=== PATIENT | female | born 1955 | race African-American/Black ===

== ENCOUNTER 2021-11-14 17:15 | Emergency (ER) | payer SELFPAY ==
[~2021-11-14] VITALS: Ht 172.7 cm; Wt 91.0 kg
[2021-11-14 18:58] LABS: CHLORIDE 103 mEq/L (98-107)
[2021-11-14 21:18] LABS: BASOPHILS % 0.1 % (0.0-2.0); EOSINOPHILS % 0.8 % (0.0-5.0); HEMATOCRIT. 38.5 % (36.0-48.0); HEMOGLOBIN. 12.8 g/dL (12.0-16.0); MEAN CORPUSCULAR HEMOGLOBIN 30.7 pg (28.0-32.0); MEAN CORPUSCULAR VOLUME 92.7 fL (81.0-99.0); MEAN PLATELET VOLUME 9.4 fl (7.4-10.4); MONOCYTES % 12.1 % (2.0-8.0); PLATELET 202 x1000/uL (130-400); RED BLOOD CELL COUNT 4.16 mill/uL (4.2-5.4); RED CELL DISTRIBUTION WIDTH 13.3 % (11.6-14.6)
[2021-11-14 23:16] LABS: CLARITY URINE CLEAR (CLEAR); COLOR URINE YELLOW (YELLOW); KETONES URINE NEGATIVE (NEGATIVE); LEUKOCYTE ESTERASE URINE 2+ (NEGATIVE); NITRITE URINE NEGATIVE (NEGATIVE); OCCULT BLOOD URINE TRACE (NEGATIVE); PH URINE 6.5 (4.5-8.0); PROTEIN URINE NEGATIVE (NEGATIVE); SPECIFIC GRAVITY URINE 1.012 (1.005-1.030); UROBILINOGEN URINE 0.2 E.U./dL (0.2-1.0)
[2021-11-14 23:38] VITALS: BP 180/94
[2021-11-14] MEDS ORDERED: KETOROLAC 30MG/ML VIAL IV STA (23:38)
[2021-11-14] MEDS ORDERED: SODIUM CHLORIDE 0.9% 1,000 ML IV ONE (23:45)
[2021-11-14] MEDS ORDERED: CEFTRIAXONE 1 G PREMIX 50 ML IV ONE (23:45)
[2021-11-15] MEDS ORDERED: TAMSULOSIN HCL 0.4MG SR CAPSULE PO ONE
[2021-11-15] MEDS ORDERED: ONDA4TAB11 PO (01:15)
[2021-11-15] MEDS ORDERED: POLY119P2 MT (01:15)
[2021-11-15] MEDS ORDERED: TRAM50TA3 MT (01:15)
[2021-11-15] MEDS ORDERED: CEPH500C2 MT (01:15)
[2021-11-15] MEDS ORDERED: TAMS-11 MT (01:15)
== END 2021-11-15 02:14 | disposition home or self-care (01) ==
LOC: ER 17:15
DX: N20.0 Calculus of kidney (principal); N39.0 Urinary tract infection, site not specified; R10.9 Unspecified abdominal pain; I10 Essential (primary) hypertension; Z88.2 Allergy status to sulfonamides
CPT/HCPCS: 36415; 71101; 74176; 80053; 81003; 83690; 83880; 84484; 85025; 96365; 96375; 99285; J0696; J1885; J7030

== ENCOUNTER 2022-02-23 09:32 | Inpatient (IN) | payer OTHER ==
[~2022-02-23] VITALS: Ht 157.5 cm; Wt 117.9 kg
[~2022-02-23 09:32] MED LIST: CEPH500C2 MT; ONDA4TAB11 PO; POLY119P2 MT; TAMS-11 MT; TRAM50TA3 MT
[2022-02-23 12:54] LABS: BASOPHILS % 0.3 % (0.0-2.0); EOSINOPHILS % 2.6 % (0.0-5.0); HEMATOCRIT. 40.3 % (36.0-48.0); HEMOGLOBIN. 13.7 g/dL (12.0-16.0); LYMPHOCYTES % 35.8 % (20.0-50.0); MEAN CORPUSCULAR HEMOGLOBIN 31.6 pg (28.0-32.0); MEAN CORPUSCULAR VOLUME 92.8 fL (81.0-99.0); MEAN PLATELET VOLUME 8.4 fl (7.4-10.4); MONOCYTES % 9.5 % (2.0-8.0); NEUTROPHILS % 51.8 % (40.0-76.0); PLATELET 147 x1000/uL (130-400); RED BLOOD CELL COUNT 4.34 mill/uL (4.2-5.4); RED CELL DISTRIBUTION WIDTH 13.3 % (11.6-14.6)
[2022-02-23 12:59] LABS: CHLORIDE 106 mEq/L (98-107)
[2022-02-23 13:20] LABS: CLARITY URINE CLEAR (CLEAR); COLOR URINE YELLOW (YELLOW); KETONES URINE NEGATIVE (NEGATIVE); LEUKOCYTE ESTERASE URINE 2+ (NEGATIVE); NITRITE URINE POSITIVE (NEGATIVE); OCCULT BLOOD URINE 1+ (NEGATIVE); PH URINE 5.5 (4.5-8.0); PROTEIN URINE NEGATIVE (NEGATIVE); SPECIFIC GRAVITY URINE 1.021 (1.005-1.030); UROBILINOGEN URINE 0.2 E.U./dL (0.2-1.0)
[2022-02-23 14:31] LABS: PROTHROMBIN TIME 10.8 sec (9.6-11.0)
[2022-02-23] MEDS ORDERED: MORPHINE SULFATE 4 MG/ML CPJ (NOT FOR IM USE) IV ONE (16:30)
[2022-02-23] MEDS ORDERED: ONDANSETRON HCL 4MG/2ML INJ IV ONE (16:30)
[2022-02-23] MEDS ORDERED: PANTOPRAZOLE SODIUM 40 MG/VIAL IV ONE (16:30)
[2022-02-23] MEDS ORDERED: DIPHENHYDRAMINE 50MG/ML VIAL IV PRN (16:45)
[2022-02-23] MEDS ORDERED: ONDANSETRON HCL 4MG/2ML INJ IV PRN (16:45)
[2022-02-23] MEDS ORDERED: IPRATROPIUM/ALBUTEROL 0.5-3(2.5)MG/3ML NEB HHN PRN (16:45)
[2022-02-23] MEDS ORDERED: CEFTRIAXONE 1 G PREMIX 50 ML IV SCH (16:45)
[2022-02-23] MEDS ORDERED: CLONIDINE 0.1MG TABLET PO PRN (16:45)
[2022-02-23] MEDS: CEFTRIAXONE 1,000 MG in DEXTROSE 5% WATER 50 ML IV SCH (18:50)
[2022-02-23 23:00] VITALS: BP 126/69
[2022-02-24] VITALS: BP 126/70
[2022-02-24] MEDS: ACETAMINOPHEN 325MG TABLET PO PRN (01:57)
[2022-02-24 04:00] VITALS: BP 115/61
[2022-02-24 06:40] LABS: CHLORIDE 105 mEq/L (98-107)
[2022-02-24 06:43] LABS: BASOPHILS % 0.1 % (0.0-2.0); EOSINOPHILS % 2.3 % (0.0-5.0); HEMATOCRIT. 35.7 % (36.0-48.0); HEMOGLOBIN. 12.3 g/dL (12.0-16.0); MEAN CORPUSCULAR HEMOGLOBIN 31.4 pg (28.0-32.0); MEAN PLATELET VOLUME 8.8 fl (7.4-10.4); MONOCYTES % 13.1 % (2.0-8.0); NEUTROPHILS % 51.5 % (40.0-76.0); PLATELET 132 x1000/uL (130-400); RED BLOOD CELL COUNT 3.92 mill/uL (4.2-5.4)
[2022-02-24 07:52] VITALS: BP 129/69
[2022-02-24 11:10] VITALS: BP_SYST 125; BP_SYST 145; BP_DIAS 60; BP_DIAS 80
[2022-02-24] MEDS ORDERED: IOHEXOL-350 100 ML BOTTLE ONE (14:35)
[2022-02-24 15:08] VITALS: BP 150/80
[2022-02-24] MEDS: CEFTRIAXONE 1,000 MG in DEXTROSE 5% WATER 50 ML IV SCH ×2 (17:10→17:11)
[2022-02-24 20:00] VITALS: BP 136/61
[2022-02-24] MEDS: HYDROCORTISONE ACETATE 25MG SUPP PR SCH (21:05)
[2022-02-25] VITALS: BP 128/82
[2022-02-25 04:00] VITALS: BP 130/80
[2022-02-25] MEDS: ACETAMINOPHEN 325MG TABLET PO PRN (06:26)
[2022-02-25 06:35] LABS: BASOPHILS % 0.3 % (0.0-2.0); EOSINOPHILS % 2.4 % (0.0-5.0); HEMOGLOBIN. 13.3 g/dL (12.0-16.0); LYMPHOCYTES % 32.5 % (20.0-50.0); MEAN CORPUSCULAR HEMOGLOBIN 30.5 pg (28.0-32.0); MEAN CORPUSCULAR VOLUME 91.8 fL (81.0-99.0); MEAN PLATELET VOLUME 9.2 fl (7.4-10.4); MONOCYTES % 12.3 % (2.0-8.0); NEUTROPHILS % 52.5 % (40.0-76.0); PLATELET 144 x1000/uL (130-400); RED BLOOD CELL COUNT 4.36 mill/uL (4.2-5.4); RED CELL DISTRIBUTION WIDTH 13.4 % (11.6-14.6)
[2022-02-25 06:55] LABS: CHLORIDE 103 mEq/L (98-107)
[2022-02-25 07:36] VITALS: BP 156/78
[2022-02-25] MEDS: HYDROCORTISONE ACETATE 25MG SUPP PR SCH ×2 (08:05→21:48)
[2022-02-25] MEDS: PANTOPRAZOLE SODIUM 40 MG/VIAL IV SCH (08:05)
[2022-02-25] MEDS ORDERED: CLOTRIMAZOLE 1% SOLUTION 10ML TOP SCH (11:00)
[2022-02-25 11:37] VITALS: BP 157/74
[2022-02-25] MEDS: CLOTRIMAZOLE 1% CREAM 15GM TOP SCH ×2 (11:54→20:30)
[2022-02-25] MEDS ORDERED: ENOXAPARIN 120MG/0.8ML SYR SUBCUT SCH (12:30)
[2022-02-25 15:06] VITALS: BP 152/74
[2022-02-25 20:00] VITALS: BP 155/85
[2022-02-26] VITALS (13 sets, daily range): BP systolic 120–173; BP diastolic 56–90
[2022-02-26 05:32] LABS: BASOPHILS % 0.1 % (0.0-2.0); EOSINOPHILS % 2.7 % (0.0-5.0); HEMATOCRIT. 39.2 % (36.0-48.0); HEMOGLOBIN. 13.2 g/dL (12.0-16.0); LYMPHOCYTES % 28.1 % (20.0-50.0); MEAN CORPUSCULAR HEMOGLOBIN 30.8 pg (28.0-32.0); MEAN CORPUSCULAR VOLUME 91.5 fL (81.0-99.0); MEAN PLATELET VOLUME 8.6 fl (7.4-10.4); MONOCYTES % 11.5 % (2.0-8.0); NEUTROPHILS % 57.6 % (40.0-76.0); PLATELET 165 x1000/uL (130-400); RED BLOOD CELL COUNT 4.29 mill/uL (4.2-5.4)
[2022-02-26 05:59] LABS: CHLORIDE 104 mEq/L (98-107)
[2022-02-26] MEDS ORDERED: LIDOCAINE HCL 1% 50ML VIAL (10MG/ML) ONE (07:20)
[2022-02-26] MEDS ORDERED: IOHEXOL-300 100 ML BOTTLE ONE (07:20)
[2022-02-26] MEDS ORDERED: IOHEXOL-300 50 ML BOTTLE IV ONE (07:20)
[2022-02-26] MEDS: PANTOPRAZOLE SODIUM 40 MG/VIAL IV SCH (09:19)
[2022-02-26] MEDS: ACETAMINOPHEN 325MG TABLET PO PRN (09:20)
[2022-02-26] MEDS: HYDROCORTISONE ACETATE 25MG SUPP PR SCH (09:20)
[2022-02-26] MEDS: CLOTRIMAZOLE 1% CREAM 15GM TOP SCH (09:21)
[2022-02-26] MEDS ORDERED: AMLODIPINE 5MG TABLET PO SCH (13:45)
[2022-02-26] MEDS ORDERED: PANT40TA51 MT (14:15)
[2022-02-26] MEDS ORDERED: HYDR25SU11 PR (14:15)
[2022-02-26] MEDS ORDERED: AMLO5TAB88 PO (14:15)
[2022-02-26] MEDS ORDERED: APIX5TAB MT (14:15)
[2022-02-26] MEDS ORDERED: PANTOPRAZOLE SODIUM 40 MG/VIAL IV SCH (21:00)
== END 2022-02-26 16:40 | disposition home or self-care (01) | DRG 175 ==
LOC: ER 09:32 → 8WST 15:58 → EDBEDREQTM 16:05 → EDBEDREQ 16:05 → ENRESERV 19:03 → 8WST 02-24 01:07
PROVIDERS: ADMIT Internal Medicine; ATTEND Internal Medicine
PROC: 06H03DZ Insertion of Intraluminal Device into Inferior Vena Cava, Percutaneous Approach (ICD-10-PCS; principal; 2022-02-26)
DX: I26.99 Other pulmonary embolism without acute cor pulmonale (principal); K57.31 Diverticulosis of large intestine without perforation or abscess with bleeding; I82.432 Acute embolism and thrombosis of left popliteal vein; N39.0 Urinary tract infection, site not specified; D68.59 Other primary thrombophilia; K92.1 Melena; I82.412 Acute embolism and thrombosis of left femoral vein; E66.09 Other obesity due to excess calories; Z20.822 Contact with and (suspected) exposure to COVID-19; G47.33 Obstructive sleep apnea (adult) (pediatric); I10 Essential (primary) hypertension; J44.9 Chronic obstructive pulmonary disease, unspecified; N20.0 Calculus of kidney; F14.90 Cocaine use, unspecified, uncomplicated; B35.3 Tinea pedis; R77.8 Other specified abnormalities of plasma proteins; K64.8 Other hemorrhoids; Z23 Encounter for immunization; Z87.442 Personal history of urinary calculi; Z88.2 Allergy status to sulfonamides; Z87.891 Personal history of nicotine dependence; Z79.01 Long term (current) use of anticoagulants; Z82.49 Family history of ischemic heart disease and other diseases of the circulatory system
CPT/HCPCS: 36415; 37191; 71045; 71275; 74176; 80048; 80053; 81003; 82270; 83735; 83880; 84484; 85025; 86850; 86900; 87426; 93005; 93306; 93970; 99285; C1769; C1880; C9113; J0696; J1644; J1650; J2270; J2405; J3490; J7060; Q9967